=== PATIENT | female | born 1985 | race Caucasian/White ===

== ENCOUNTER 2017-06-18 18:10 | Observation (INO) | payer OTHER ==
[2017-06-18] MEDS ORDERED: PREN1TAB80 PO (18:18)
== END 2017-06-18 20:40 | disposition home or self-care (01) ==
LOC: 4S 18:10
PROVIDERS: ADMIT Obstetrics & Gynecology; ATTEND Obstetrics & Gynecology
DX: O46.93 Antepartum hemorrhage, unspecified, third trimester (principal); O26.893 Other specified pregnancy related conditions, third trimester; R10.9 Unspecified abdominal pain; O62.9 Abnormality of forces of labor, unspecified; Z3A.38 38 weeks gestation of pregnancy
CPT/HCPCS: 59025; G0378

== ENCOUNTER 2017-06-27 01:27 | Inpatient (IN) | payer OTHER ==
[~2017-06-27] VITALS: Ht 157.5 cm; Wt 68.9 kg
[~2017-06-27 01:27] MED LIST: PREN1TAB80 PO
[2017-06-27] MEDS ORDERED: OXYTOCIN 30 UNITS/LACT RINGERS 500 ML IV ONE (01:55)
[2017-06-27] MEDS ORDERED: RINGERS SOLUTION,LACTATED 1,000 ML IV ONE (01:59)
[2017-06-27] MEDS ORDERED: CITRIC ACID/SODIUM CITRATE 30 ML SOLUTION UDCUP PO PRN (02:00)
[2017-06-27] MEDS ORDERED: LIDOCAINE HCL/PF 1% 30 ML VIAL INJ PRN (02:00)
[2017-06-27] MEDS ORDERED: METOCLOPRAMIDE HCL 5 MG/ML 2 ML VIAL IVP PRN (02:00)
[2017-06-27] MEDS ORDERED: FentaNYL CITRATE-PF 100 MCG/2 ML VIAL IVP PRN (02:00)
[2017-06-27 02:02] VITALS: BP 133/79
[2017-06-27 02:18] LABS: BASOPHILS % (AUTO) 0.5 % (0.0-2.0); EOSINOPHILS % (AUTO) 2.2 % (1.0-6.0); HEMATOCRIT 32.8 % (36-46); HEMOGLOBIN 11.3 g/dL (12.0-16.0); LYMPHOCYTES # (AUTO) 3.6 K/uL (1.0-4.8); LYMPHOCYTES % (AUTO) 36.7 % (22.0-44.0); MEAN CORPUSCULAR HEMOGLOBIN 31.6 pg (26.0-34.0); MEAN CORPUSCULAR HGB CONC 34.4 G/dL (31.0-37.0); MEAN CORPUSCULAR VOLUME 92 fL (80-100); MONOCYTES # (AUTO) 0.6 K/uL (0.1-1.0); MONOCYTES % (AUTO) 6.4 % (2.0-9.0); NEUTROPHILS # (AUTO) 5.3 K/uL (1.8-7.7); NEUTROPHILS % (AUTO) 54.2 % (40.0-70.0); RED BLOOD CELL COUNT(AUTO) 3.58 MIL/uL (4.00-5.20); RED CELL DISTRIBUTION WIDTH 13.8 % (11.5-14.5); WHITE BLOOD COUNT (AUTO) 9.7 K/uL (4.5-11.0)
[2017-06-27] MEDS: RINGERS SOLUTION,LACTATED 1,000 ML IV SCH ×3 (02:19→18:18)
[2017-06-27] MEDS ORDERED: IRON18TA PO (02:35)
[2017-06-27] MEDS ORDERED: INFLUENZA VIRUS VACCINE QVS 2017-18 (3YR+)/PF 60 MCG/0.5 ML SYRINGE IM ONE (03:00)
[2017-06-27] MEDS ORDERED: OXYTOCIN 30 UNITS/LACT RINGERS 500 ML IV PRN (14:58)
[2017-06-28] MEDS: RINGERS SOLUTION,LACTATED 1,000 ML IV SCH ×3 (03:25→20:45)
[2017-06-28] MEDS ORDERED: AMPICILLIN SODIUM 2 GM/NS 100 ML IV ONE (03:30)
[2017-06-28] MEDS: AMPICILLIN SODIUM 1 GM/NS 50 ML IV SCH ×4 (08:02→20:46)
[2017-06-28] MEDS ORDERED: BUPIVACAINE HCL/PF 0.25% 10 ML VIAL ONE (12:43)
[2017-06-28] MEDS ORDERED: LIDOCAINE HCL/PF 2% 5 ML VIAL ONE ×2 (12:43→20:43)
[2017-06-28] MEDS ORDERED: FentaNYL/BUPIV 0.125%/NS/PF 200 ML ED ONE (12:43)
[2017-06-28] MEDS ORDERED: FentaNYL/BUPIV 0.125%/NS/PF 200 ML ED PRN (13:21)
[2017-06-28] MEDS ORDERED: ONDANSETRON HCL 4 MG/2 ML VIAL IVP PRN (13:30)
[2017-06-28] MEDS ORDERED: NALBUPHINE HCL 10 MG/ML VIAL IVP PRN ×2 (13:30)
[2017-06-28] MEDS ORDERED: DiphenhydrAMINE HCL 50 MG/ML VIAL IVP PRN (13:30)
[2017-06-28] MEDS ORDERED: PROMETHAZINE HCL 12.5 MG in SODIUM CHLORIDE 0.9% 50 ML IV PRN (13:30)
[2017-06-28] MEDS ORDERED: FentaNYL CITRATE-PF 100 MCG/2 ML VIAL ONE (20:43)
[2017-06-28] MEDS ORDERED: BUPIVACAINE HCL/PF 0.5% 10 ML VIAL ONE (20:43)
[2017-06-28] MEDS ORDERED: LANOLIN 7 GM OINTMENT TP PRN (22:15)
[2017-06-28] MEDS ORDERED: GLYCERIN/WITCH HAZEL LEAF 40 PADS JAR TP PRN (22:15)
[2017-06-28] MEDS ORDERED: BENZOCAINE 20%/MENTHOL 56 GM SPRAY CANISTER TP PRN (22:15)
[2017-06-28] MEDS ORDERED: ACETAMINOPHEN/CODEINE 300-30 MG TABLET PO PRN ×2 (22:15)
[2017-06-29] MEDS: IBUPROFEN 600 MG TABLET PO PRN ×2 (00:43→09:13)
[2017-06-29 07:13] LABS: HEMATOCRIT 28.8 % (36-46); HEMOGLOBIN 9.8 g/dL (12.0-16.0); MEAN CORPUSCULAR HEMOGLOBIN 31.2 pg (26.0-34.0); MEAN CORPUSCULAR VOLUME 92 fL (80-100); RED BLOOD CELL COUNT(AUTO) 3.13 MIL/uL (4.00-5.20); RED CELL DISTRIBUTION WIDTH 14.1 % (11.5-14.5); WHITE BLOOD COUNT (AUTO) 20.6 K/uL (4.5-11.0)
[2017-06-29] MEDS ORDERED: SENNA/DOCUSATE SODIUM 187-50 MG TABLET PO SCH (09:00)
[2017-06-29 10:13] LABS: BAND NEUTROPHILS % (MANUAL) 14 % (1-5); LYMPHOCYTES % (MANUAL) 15 % (22-44); TOTAL CELLS COUNTED 100
[2017-06-29 10:14] LABS: RBC MORPHOLOGY COMMENT NORMAL RBC MORPH
[2017-06-30] MEDS: IBUPROFEN 600 MG TABLET PO PRN (03:10)
[2017-06-30] MEDS ORDERED: FERR-89 PO (09:17)
[2017-06-30] MEDS ORDERED: IBUP-2070 PO (09:17)
== END 2017-06-30 10:45 | disposition home or self-care (01) | DRG 775 ==
LOC: OBSVTOIN 01:27 → 4S 01:27
PROVIDERS: ADMIT Obstetrics & Gynecology; ATTEND Obstetrics & Gynecology
PROC: 10E0XZZ Delivery of Products of Conception, External Approach (ICD-10-PCS; principal; 2017-06-28)
PROC: 00HU33Z Insertion of Infusion Device into Spinal Canal, Percutaneous Approach (ICD-10-PCS; 2017-06-28)
DX: O77.0 Labor and delivery complicated by meconium in amniotic fluid (principal); Z37.0 Single live birth; Z3A.39 39 weeks gestation of pregnancy
CPT/HCPCS: 86850; 86900; 86901; 87340; J0290; J2590; J3010; J3490; J7120